=== PATIENT | male | born 1985 | race Asian ===

== ENCOUNTER 2016-10-01 12:33 | Emergency (ER) | payer MEDICAID ==
[2016-10-01 12:40] VITALS: BP 124/88
--- NOTE | 2016-10-01 13:00 | ED Physician Documentation ---
History of Present Illness - Stated complaint Stated Complaint: CONGESTION/EAR PX - Chief complaint Chief Complaint: Heent - Additonal information Additional information: hx from pt 30 male 5 days of cough congestion ear pain sore throat no travel sick co workers Review of Systems Constitutional: denies: Fever Ears: reports: Ear pain Nose: reports: Congestion Throat: reports: Sore throat Respiratory: reports: Cough Immunocompromised: denies: Immunocompromised PD PAST MEDICAL HISTORY - Past Medical History Past Medical History: No - Past Surgical History Past Surgical History: No HEENT: Tonsil/Adenoidectomy - Present Medications Home Medications: Ambulatory Orders Medication Instructions Recorded Confirmed Azithromycin [Zithromax] 250 mg PO DAILY #6 tablet 10/01/16 Benzonatate [Tessalon] 100 mg PO TID PRN #20 capsule 10/01/16 Fluticasone [Flonase] 1 sprays DIGNA BID PRN #1 bottle 10/01/16 - Allergies Allergies/Adverse Reactions: Allergies Allergy/AdvReac Type Severity Reaction Status Date / Time Penicillins Allergy Hives Verified 10/01/16 12:40 sulfamethoxazole Allergy Hives Verified 10/01/16 12:40 [From ] trimethoprim [From ] Allergy Hives Verified 10/01/16 12:40 - Social History Does the pt smoke?: No Smoking Status: Former smoker Does the pt drink ETOH?: Yes ETOH Use: Beer Does the pt have substance abuse?: No - Immunizations Immunizations are current?: Yes - POLST Patient has POLST: No PD ED PE NORMAL - Vitals Vital signs reviewed: Yes - General General: Alert and oriented X 3 - HEENT HEENT: PERRL, Moist mucous membranes. No: Ears normal (L AOM - dull red no landmarks, R benigh), Pharynx benign (erythema no exudate or swelling) - Neck Neck: Supple, no meningeal sign - Cardiac Cardiac: RRR - Respiratory Respiratory: No respiratory distress, Clear bilaterally - Neuro Neuro: Alert and oriented X 3 Results - Vitals Vitals: Vital Signs - 24 hr 10/01/16 12:35 Temperature 36.5 C Heart Rate 88 Respiratory 17 Rate Blood Pressure 124/88 H O2 Saturation 96 Oxygen O2 Source Room air Departure - Departure Disposition: 01 Home, Self Care Clinical Impression: Pharyngitis Qualifiers: Pharyngitis/tonsillitis etiology: unspecified etiology Qualified Code(s): J02.9 - Acute pharyngitis, unspecified Otitis media Qualifiers: Otitis media type: suppurative Laterality: left Chronicity: acute Recurrence: not specified as recurrent Spontaneous tympanic membrane rupture: without spontaneous rupture Qualified Code(s): H66.002 - Acute suppurative otitis media without spontaneous rupture of ear drum, left ear URI (upper respiratory infection) Qualifiers: URI type: unspecified viral URI Qualified Code(s): J06.9 - Acute upper respiratory infection, unspecified; B97.89 - Other viral agents as the cause of diseases classified elsewhere Condition: Good Instructions: ED Otitis Media Acute Adult Prescriptions: Fluticasone [Flonase] 1 sprays IDGNA BID PRN #1 bottle PRN Reason: allergies Benzonatate [Tessalon] 100 mg PO TID PRN #20 capsule PRN Reason: to ease cough Azithromycin [Zithromax] 250 mg PO DAILY #6 tablet Comments: Motrin and/or tylenol as needed for the pain And please follow up with your PMD about your blood pressure - it was high today Forms: Activity restrictions
[2016-10-01 13:07] LABS: RAPID STREP SCREEN REAGENT QC YELLOW (YELLOW)
== END 2016-10-01 13:06 | disposition home or self-care (01) ==
LOC: ED 12:33
DX: J02.9 Acute pharyngitis, unspecified (principal); H66.002 Acute suppurative otitis media without spontaneous rupture of ear drum, left ear; J06.9 Acute upper respiratory infection, unspecified; B97.89 Other viral agents as the cause of diseases classified elsewhere; R03.0 Elevated blood-pressure reading, without diagnosis of hypertension; Z87.891 Personal history of nicotine dependence
CPT/HCPCS: 87070; 87430; 99283

== ENCOUNTER 2017-05-16 14:36 | Outpatient (CLI) | payer MEDICAID ==
--- NOTE | 2017-05-16 18:58 | Ultrasound Report ---
DATE OF SERVICE: 05/16/2017 SCROTAL DUPLEX: 05/16/2017 CLINICAL INDICATION: Pain, palpable abnormality, left side. FINDINGS: The right testicle measures 4.6 x 3.2 x 2.3 cm, and the left testicle measures 4.2 x 3.0 x 2.2 cm. Both testicles demonstrate normal flow and echotexture. No hydrocele, varicocele, or hernia is identified. The epididymides are unremarkable. The patient had a difficult time localizing a palpable abnormality. IMPRESSION: NORMAL SCROTAL DUPLEX. TD: 05/16/2017 19:57
== END 2017-05-16 14:37 | disposition home or self-care (01) ==
LOC: DI 14:36
PROVIDERS: ATTEND Family Medicine
DX: N50.82 Scrotal pain (principal)
CPT/HCPCS: 76870

== ENCOUNTER 2017-06-18 21:15 | Emergency (ER) | payer OTHER, MEDICAID ==
[2017-06-18 21:24] VITALS: BP 133/83
[2017-06-18] MEDS ORDERED: TETANUS/DIPHTHERIA/PERTUSSIS 0.5 ML SYRINGE IM ONE (21:27)
--- NOTE | 2017-06-18 21:29 | ED Physician Documentation ---
PD HPI UPPER EXT INJURY - Stated complaint Stated Complaint: FINGER LAC - Chief complaint Chief Complaint: Laceration - History obtained from History obtained from: Patient - History of Present Illness Location: Left, Finger (3rd) Type of injury: Other (avulsion) Where injury occurred: Work ([employer]) Timing - onset: How many hours ago (1) Timing - duration: Hours (1) Timing - details: Abrupt onset Pain level max: 3 Pain level now: 2 Improved by: Rest Worsened by: Moving, Palpating Associated symptoms: No: Weakness, Numbness, Tingling, Swelling Contributing factors: No: Anticoagulated Similar symptoms before: Has not had sx before - Additonal information Additional information: states cut finger on something as he was throwing it away at work. Review of Systems Constitutional: denies: Fever GI: denies: Vomiting Neurologic: denies: Focal weakness, Numbness PD PAST MEDICAL HISTORY - Past Medical History Past Medical History: No - Past Surgical History Past Surgical History: No HEENT: Tonsil/Adenoidectomy - Present Medications Home Medications: Ambulatory Orders Medication Instructions Recorded Confirmed Azithromycin [Zithromax] 250 mg PO DAILY #6 tablet 10/01/16 Benzonatate [Tessalon] 100 mg PO TID PRN #20 capsule 10/01/16 Fluticasone [Flonase] 1 sprays DIGNA BID PRN #1 bottle 10/01/16 - Allergies Allergies/Adverse Reactions: Allergies Allergy/AdvReac Type Severity Reaction Status Date / Time Penicillins Allergy Hives Verified 06/18/17 21:24 sulfamethoxazole Allergy Hives Verified 06/18/17 21:24 [From ] trimethoprim [From ] Allergy Hives Verified 06/18/17 21:24 - Social History Does the pt smoke?: No Smoking Status: Former smoker Does the pt drink ETOH?: Yes Does the pt have substance abuse?: No - Immunizations Immunizations are current?: Yes Immunizations: TDAP >10years/unknown - POLST Patient has POLST: No PD ED PE NORMAL - Vitals Vital signs reviewed: Yes - General General: Alert and oriented X 3, No acute distress - Derm Derm: Warm and dry - Extremities Extremities: Other (L hand - 3rd digit 0.2x0.3cm subcutaneous avulsion. NVI. skin is completely removed. ) - Neuro Neuro: Alert and oriented X 3 Results - Vitals Vitals: Vital Signs - 24 hr 06/18/17 21:20 Temperature 36.2 C L Heart Rate 96 Respiratory 16 Rate Blood Pressure 133/83 H O2 Saturation 97 Oxygen O2 Source Room air PD MEDICAL DECISION MAKING - ED course Complexity details: re-evaluated patient, considered differential, d/w patient ED course: Patient is a 31-year-old male with an avulsion to the left third digit. This was cleansed well, covered with Gelfoam and then wrapped in tube gauze. Warnings of infection and instructions on wound care given at bedside. Also counseled on how to minimize scarring. Tdap given Patient counseled regarding signs and symptoms for which I believe and urgent re-evaluation would be necessary. Patient with good understanding of and agreement to plan and is comfortable going home at this time This document was made in part using voice recognition software. While efforts are made to proofread this document, sound alike and grammatical errors may occur. Departure - Departure Disposition: 01 Home, Self Care Clinical Impression: Avulsion of finger Qualifiers: Encounter type: initial encounter Qualified Code(s): S61.209A - Unspecified open wound of unspecified finger without damage to nail, initial encounter Condition: Good Instructions: ED Avulsion Dermal Follow-Up: Brandan Castro MD [Primary Care Provider] - Within 3 Days (for wound check) Comments: Keep the wound clean. It must be covered when at work. Return if you worsen, especially for redness, swelling or drainage from the wound. Forms: Activity restrictions
== END 2017-06-18 22:06 | disposition home or self-care (01) ==
LOC: ED 21:15
DX: S61.213A Laceration without foreign body of left middle finger without damage to nail, initial encounter (principal); W45.8XXA Other foreign body or object entering through skin, initial encounter; Y92.511 Restaurant or cafe as the place of occurrence of the external cause; Y99.0 Civilian activity done for income or pay; Z87.891 Personal history of nicotine dependence; Z23 Encounter for immunization
CPT/HCPCS: 1040M; 90471; 90715; 99282; 99283

== ENCOUNTER 2018-02-10 15:59 | Emergency (ER) | payer MEDICAID ==
[2018-02-10 16:13] VITALS: BP 143/84
--- NOTE | 2018-02-10 17:47 | ED Physician Documentation ---
PD HPI SKIN - Stated complaint Stated Complaint: RASH - Chief complaint Chief Complaint: Wound - History obtained from History obtained from: Patient - History of Present Illness Timing - onset: How many days ago (5) Timing - duration: Days (5) Timing - details: Gradual onset Pain level max: 4 Pain level now: 3 Location: Other (R flank) Quality / character: Painful, Burning, Raised Improved by: Other (nothing) Worsened by (comment): COMMENT (nothing) Associated symptoms: No: Fever, Myalgias, Joint pain, Headache, Facial swelling, Dyspnea, Abd pain, N/V/D, Urinary sx Contributing factors: No: Exposed to medication, Exposed to food, Exposed to soap / lotion, Exposed to Poison kyleigh/oak, Insect bite /sting, Recent illness Similar symptoms before: Has not had sx before Recently seen: Not recently seen Review of Systems Constitutional: denies: Fever, Chills GI: denies: Vomiting, Diarrhea Musculoskeletal: denies: Neck pain, Back pain Neurologic: denies: Headache PD PAST MEDICAL HISTORY - Past Medical History Past Medical History: No - Past Surgical History Past Surgical History: No HEENT: Tonsil/Adenoidectomy - Present Medications Home Medications: Ambulatory Orders Medication Instructions Recorded Confirmed Azithromycin [Zithromax] 250 mg PO DAILY #6 tablet 10/01/16 Benzonatate [Tessalon] 100 mg PO TID PRN #20 capsule 10/01/16 Fluticasone [Flonase] 1 sprays DIGNA BID PRN #1 bottle 10/01/16 Valacyclovir HCl [Valtrex] 1,000 mg PO TID #21 tablet 02/10/18 - Allergies Allergies/Adverse Reactions: Allergies Allergy/AdvReac Type Severity Reaction Status Date / Time Penicillins Allergy Hives Verified 06/18/17 21:24 sulfamethoxazole Allergy Hives Verified 06/18/17 21:24 [From ] trimethoprim [From ] Allergy Hives Verified 06/18/17 21:24 - Social History Does the pt smoke?: No Smoking Status: Never smoker Does the pt drink ETOH?: Yes Does the pt have substance abuse?: No - Immunizations Immunizations are current?: Yes Immunizations: TDAP >10years/unknown - POLST Patient has POLST: No PD ED PE NORMAL - Vitals Vital signs reviewed: Yes - General General: Alert and oriented X 3 - HEENT HEENT: Moist mucous membranes, Pharynx benign - Neck Neck: Supple, no meningeal sign, Other (Firm nodular area to the left lower thyroid.) - Cardiac Cardiac: RRR, Strong equal pulses - Respiratory Respiratory: No respiratory distress, Clear bilaterally - Abdomen Abdomen: Soft, Non tender, Non distended - Derm Derm: Warm and dry, Other (Dermatomal rash to the right flank, raised macular, erythematous with small scabs) - Neuro Neuro: Alert and oriented X 3 Results - Vitals Vitals: Vital Signs - 24 hr 02/10/18 16:08 Temperature 36.1 C L Heart Rate 88 Respiratory 18 Rate Blood Pressure 143/84 H O2 Saturation 96 Oxygen O2 Source Room air PD MEDICAL DECISION MAKING - ED course Complexity details: considered differential, d/w patient ED course: Patient is a 32-year-old male who presents to the emergency department what appears to be shingles of the right flank. He also is concerned about a swelling on the left side of the throat and it feels like a firm enlarged portion of his thyroid. Recommend that he follow-up closely with his doctor for ultrasound and further evaluation. Will place on Valtrex. Patient counseled regarding signs and symptoms for which I believe and urgent re-evaluation would be necessary. Patient with good understanding of and agreement to plan and is comfortable going home at this time This document was made in part using voice recognition software. While efforts are made to proofread this document, sound alike and grammatical errors may occur. Departure - Departure Disposition: 01 Home, Self Care Clinical Impression: Thyromegaly Shingles Qualifiers: Herpes zoster complications: without complications Qualified Code(s): B02.9 - Zoster without complications Condition: Good Instructions: ED Shingles Follow-Up: Brandan Castro MD [Credentialed Staff Provider] - Within 1 week Prescriptions: Valacyclovir HCl [Valtrex] 1,000 mg PO TID #21 tablet Comments: Take the Valtrex until gone. Return if you worsen. This should improve over the next week. You can use Motrin or Tylenol as needed for pain. Keep the area covered when out in public or at work Discharge Date/Time: 02/10/18 17:59
== END 2018-02-10 17:59 | disposition home or self-care (01) ==
LOC: ED 15:59
DX: B02.9 Zoster without complications (principal); E04.9 Nontoxic goiter, unspecified
CPT/HCPCS: 99283

== ENCOUNTER 2018-02-22 13:27 | Outpatient (CLI) | payer MEDICAID ==
[2018-02-22 19:43] LABS: THYROID STIMULATING HORMONE 1.29 uIU/mL (0.34-5.60)
[2018-02-22 19:45] LABS: FREE T4 (FREE THYROXINE) 0.83 ng/dL (0.58-1.64)
== END 2018-02-22 13:28 | disposition home or self-care (01) ==
LOC: LAB.N 13:27
PROVIDERS: ATTEND Family Medicine
DX: E04.9 Nontoxic goiter, unspecified (principal)
CPT/HCPCS: 36415; 84439; 84443; 84481

== ENCOUNTER 2018-03-01 18:47 | Outpatient (CLI) | payer MEDICAID ==
--- NOTE | 2018-03-02 14:33 | Ultrasound Report ---
Reason: ENLARGED THYROID Procedure Date: 03/01/2018 Accession Number: [id number] / [id number] Procedure: US - Head or Neck Soft Tissue CPT Code: FULL RESULT: EXAM: THYROID ULTRASOUND EXAM DATE: 03/01/2018 07:08 PM. CLINICAL HISTORY: Enlarged thyroid. COMPARISON: None. TECHNIQUE: Real time sonographic imaging of the thyroid was performed by the hazmat cdl driver. Multiple artist representative static images were saved for review. FINDINGS: THYROID GLAND: Right Lobe: 4.5 x 1.6 x 1.8 cm, volume 6.8 cc. Normal background echotexture. Right Lobe Nodules: There is a 1 cm cyst with echogenic 3 mm mural nodule. Left Lobe: 6.6 x 2.8 x 4.2 cm, volume 41 cc. Normal background echotexture. Left Lobe Nodules: There is a 4.6 x 2.8 x 3.9 cm heterogeneous vascular mass within the left lobe of the thyroid. Isthmus: 0.3 cm AP. Isthmic Nodules: None. LYMPH NODES: No adenopathy demonstrated in the central or lateral compartment. OTHER: None. IMPRESSION: The solid left thyroid lobe mass warrants tissue diagnosis by fine-needle aspiration. Management recommendations are based on 2015 [place] [employer] Management Guidelines for Adult Patients with Thyroid Nodules and Differentiated Thyroid Cancer. RADIA
== END 2018-03-01 18:48 | disposition home or self-care (01) ==
LOC: DI 18:47
PROVIDERS: ATTEND Family Medicine
DX: E04.2 Nontoxic multinodular goiter (principal)
CPT/HCPCS: 76536